=== PATIENT | female | born 1950 | race Caucasian/White ===

== ENCOUNTER → 2017-01-10 | Outpatient (CLI) | payer BC, OTHER ==
[~2017-01-10] VITALS: Ht 154.9 cm; Wt 78.0 kg
[~2017-01-10] MED LIST: ASPIR 8181 M1 PO; BENICAR40 MG PO; CALCIUM 500 MG1 EAC2 PO; DIOVAN40 MG PO; HAIR, SKIN & N1 EAC1 PO; LIPITOR40 MG PO; MULTIPLE VITAM1 EACH PO; OMEGA 3 500 SO1 EACH PO; OMEPRAZOLE40 M1 PO; PREMARIN0.625 MG PO; PROBIOTIC1 EAC1 PO; VITAMIN D5000 UNIT PO
[2017-01-10 10:03] LABS: HEMATOCRIT 47.3 % (36.0-46.0); MCH 25.4 PG (29.0-34.0); MCHC 32.6 G/DL (30.0-36.0); MCV 78.1 FL (83-99); MEAN PLAT.VOLUME 10.9 uM^3 (9.5-12.4); PLATELET COUNT 68 K/uL (156-360); RBC DIS.WIDTH-CV 17.4 % (11.8-14.6); RBC DIS.WIDTH-SD 46.6 % (39-53); RED BLOOD COUNT 6.06 M/uL (3.80-5.20); WHITE BLOOD COUNT 3.6 K/uL (4.1-10.2)
[2017-01-10 10:16] LABS: INTER. NORMALIZED RATIO 1.1; PROTHROMBIN TIME 11.8 SEC (10.2-12.9)
[2017-01-10 10:18] LABS: PTT 28.9 SEC (25-37)
[2017-01-10 11:01] LABS: ABS NEUTROPHIL COUNT 0.4; ATYPICAL LYMPHOCYTE 6.2 %; BASOPHILS 1.8 %; EOSINOPHIL ABS CT 0.1; EOSINOPHILS 2.7 % (0-5.0); HEMATOLOGY COMMENT 1 SN; INSTRUMENT ABS NEUTROPHIL CT 0.5 K/uL; LYMPHOCYTES 75.9 % (15.0-45.0); PLAT.SUFFICIENCY DECREASED; SEG.NEUTROPHILS 11.6 % (46.0-76.0); SMUDGE CELLS 15.2
[2017-01-14 08:33] LABS: NUMBER OF MARKERS 24; SPECIMEN VIABILITY 89
== END | disposition home or self-care (01) ==
LOC: OPR 09:21 → EDSTATUS 10:00
PROVIDERS: Internal Medicine Hematology & Oncology
PROC: 07DS3ZX Extraction of Vertebral Bone Marrow, Percutaneous Approach, Diagnostic (ICD-10-PCS; principal; 2017-01-10)
DX: D69.6 Thrombocytopenia, unspecified (principal)
CPT/HCPCS: 77012; 85025; 85610; 85730; J3010